=== PATIENT | male | born 1975 | race African-American/Black ===

== ENCOUNTER 2021-05-09 15:38 | Emergency (ER) | payer MEDICAID ==
[~2021-05-09] VITALS: Ht 175.3 cm; Wt 104.3 kg
[2021-05-09 15:42] VITALS: BP 181/97
--- NOTE | 2021-05-09 15:55 | NUR ---
LITTLE BE AT BEDSIDE EXAMINING PT
--- NOTE | 2021-05-09 15:55 | NUR ---
45 Y/O MALE BIB SELF WITH C/O BUG BITE TO LEFT WRIST X2 DAYS, STATES HE DID NOT SEE WHAT BIT HIM. REPORTS TAKING EXCEDRIN AND TYLENOL FOR PAIN WITH NO RELIEF, DENIES FEVERS, CHILLS, N/V/D. PT STATES 10/ PAIN. SKIN WARM TO TOUCH, TENDER AT SITE. SWELLING AND REDNESS TO LT HAND. NUMBNESS TO FINGERS UPON PALPATION. MEDHX: DENIES ALLERGIES: NKA
[2021-05-09] MEDS ORDERED: NAPR-54 PO (15:58)
[2021-05-09] MEDS ORDERED: SULF-59 PO (15:58)
[2021-05-09] MEDS ORDERED: CEPH-588 PO (15:58)
[2021-05-09] MEDS: KETOROLAC 30 MG/ML VIAL IM ONE (16:04)
[2021-05-09 16:11] VITALS: BP 181/97
--- NOTE | 2021-05-09 16:11 | NUR ---
Patient discharged with v/s stable. Written and verbal after care instructions given and explained. Patient alert, oriented and verbalized understanding of instructions. Ambulatory with steady gait. All questions addressed prior to discharge. ID band removed. Patient advised to follow up with PMD. Rx of BACTRIM, KEFLEX, AND NAPROSYN given. Patient educated on indication of medication including possible reaction and side effects. Opportunity to ask questions provided and answered.
== END 2021-05-09 16:11 | disposition home or self-care (01) ==
LOC: MED 15:38
DX: S50.862A Insect bite (nonvenomous) of left forearm, initial encounter (principal); L03.114 Cellulitis of left upper limb; W57.XXXA Bitten or stung by nonvenomous insect and other nonvenomous arthropods, initial encounter; Y93.89 Activity, other specified; Y92.89 Other specified places as the place of occurrence of the external cause; Y99.8 Other external cause status
CPT/HCPCS: 96372; 99283; J1885

== ENCOUNTER 2021-07-01 08:47 | Emergency (ER) | payer OTHER, MEDICAID ==
[~2021-07-01] VITALS: Ht 175.3 cm; Wt 104.8 kg
[~2021-07-01 08:47] MED LIST: CEPH-588 PO; NAPR-54 PO; SULF-59 PO
[2021-07-01 08:49] VITALS: BP 152/92
--- NOTE | 2021-07-01 08:50 | NUR ---
PT AMBULATED TO BED 3
--- NOTE | 2021-07-01 08:55 | NUR ---
46 Y/O MALE BIB SELF DUE TO OVERALL BODY PAIN S/P TC THAT OCCURED 06/27/21. PT STATED PAIN IS 10/10 AND THE PAIN IS CONSTANT. PT HAS BEEN TAKING ASPIRIN AT HOME WITH NO PAIN RELIEF. PT STATES BACK AND NECK PAIN IS WORSE WHEN HE IS LYING IN BED. PT IS ALERT AND ORIENTED X4. BED IN LOWEST POSITION. BED RAIL X1. PMH: DENIES NKA
--- NOTE | 2021-07-01 09:10 | NUR ---
AT PT BEDSIDE
--- NOTE | 2021-07-01 09:35 | NUR ---
PT TAKEN TO CT VIA ANA
[2021-07-01] MEDS ORDERED: KETOROLAC 60 MG/2 ML VIAL IM ONE (10:35)
[2021-07-01] MEDS ORDERED: NAPR-1704 PO (10:36)
[2021-07-01] MEDS ORDERED: ACET-8386 PO (10:36)
[2021-07-01 10:56] VITALS: BP 139/84
--- NOTE | 2021-07-01 10:59 | NUR ---
Patient discharged with v/s stable. Written and verbal after care instructions given and explained. Patient alert, oriented and verbalized understanding of instructions. Ambulatory with steady gait. All questions addressed prior to discharge. ID band removed. Patient advised to follow up with PMD. Rx of HYDROCODONE, ACETAMINOPHEN, NAPROSYN given. Patient educated on indication of medication including possible reaction and side effects. Opportunity to ask questions provided and answered.
== END 2021-07-01 10:56 | disposition home or self-care (01) ==
LOC: MED 08:47
DX: S16.1XXA Strain of muscle, fascia and tendon at neck level, initial encounter (principal); S39.012A Strain of muscle, fascia and tendon of lower back, initial encounter; S29.012A Strain of muscle and tendon of back wall of thorax, initial encounter; S20.219A Contusion of unspecified front wall of thorax, initial encounter; S00.81XA Abrasion of other part of head, initial encounter; S80.811A Abrasion, right lower leg, initial encounter; S09.90XA Unspecified injury of head, initial encounter; F17.210 Nicotine dependence, cigarettes, uncomplicated; Z71.6 Tobacco abuse counseling; Z79.899 Other long term (current) drug therapy; V89.2XXA Person injured in unspecified motor-vehicle accident, traffic, initial encounter; Y93.89 Activity, other specified; Y92.89 Other specified places as the place of occurrence of the external cause; Y99.8 Other external cause status
CPT/HCPCS: 70450; 71045; 72125; 72128; 72131; 96372; 99285; J1885; Q0092

== ENCOUNTER 2022-03-21 14:05 | Inpatient (IN) | payer MEDICAID ==
[~2022-03-21] VITALS: Ht 172.7 cm; Wt 82.6 kg
[~2022-03-21 14:05] MED LIST changes: +ACET-8905 PO; +NAPR-1704 PO
[2022-03-21 14:16] VITALS: BP 176/107
--- NOTE | 2022-03-21 14:54 | NUR ---
Dr. Duran bedside.
[2022-03-21] MEDS ORDERED: KETOROLAC 60 MG/2 ML VIAL IM ONE (15:00)
--- NOTE | 2022-03-21 15:14 | NUR ---
Kavya dropped off with lab.
[2022-03-21 15:42] LABS: BASOPHILS # (AUTO) 0.1 K/uL (0.00-0.22); EOSINOPHILS # (AUTO) 0.1 K/uL (0-0.4); EOSINOPHILS % (AUTO) 1.3 % (0.0-4.0); HEMATOCRIT 43.8 % (36-52); HEMOGLOBIN 14.6 g/dL (12.0-18.0); LYMPHOCYTES # (AUTO) 2.6 K/uL (2.0-11.5); LYMPHOCYTES % (AUTO) 37.6 % (20.5-51.1); MEAN CORPUSCULAR HEMOGLOBIN 29 pg (27-31); MEAN CORPUSCULAR HGB CONC 33 g/dL (33-37); MEAN CORPUSCULAR VOLUME 87.8 fL (80-94); MONOCYTES # (AUTO) 0.8 K/uL (0.8-1.0); MONOCYTES % (AUTO) 11.1 % (1.7-9.3); NEUTROPHILS # (AUTO) 3.4 K/uL (1.8-7.7); PLATELET COUNT (AUTO) 200 K/uL (140-450); RED BLOOD CELL COUNT(AUTO) 4.99 MIL/uL (4.20-6.10); RED CELL DISTRIBUTION WIDTH 14.9 % (11.6-13.7); WHITE BLOOD COUNT (AUTO) 6.9 K/uL (4.8-10.8)
[2022-03-21 16:06] LABS: ALBUMIN 3.8 g/dL (3.4-5.0); ASPARTATE AMINOTRANSFERASE 29 U/L (15-37); CARBON DIOXIDE 30.3 mmol/L (21-32); CHLORIDE 105 mmol/L (98-107); CREATININE 0.7 mg/dL (0.6-1.3); GFR ARICAN-AMERICAN 158 mL/min (>90); GLUCOSE 88 mg/dL (74-106); POTASSIUM 3.3 mmol/L (3.5-5.1); SODIUM SERUM 141 mmol/L (136-145); TOTAL BILIRUBIN 0.2 mg/dL (0.0-1.0); UREA NITROGEN, BLOOD 12 mg/dL (7-18)
--- NOTE | 2022-03-21 16:15 | NUR ---
Attempted to obtain urine from pt. Pt still stating he is unable to provide sample. Water provided.
[2022-03-21] MEDS ORDERED: LORazepam 2 MG/ML VIAL IVP PRN (17:35)
[2022-03-21] MEDS ORDERED: POTASSIUM CHLORIDE 10 MEQ TABER PO PRN (17:35)
[2022-03-21] MEDS ORDERED: ZOLPIDEM 10 MG TAB PO PRN (17:35)
[2022-03-21] MEDS ORDERED: ONDANSETRON 4 MG/2 ML VIAL IVP PRN (17:35)
[2022-03-21] MEDS ORDERED: ACETAMINOPHEN 325 MG TAB PO PRN (17:35)
[2022-03-21] MEDS ORDERED: MAG SULF 2000 MG/WATER PREMIX 50 ML IV PRN (17:35)
[2022-03-21] MEDS ORDERED: DOCUSATE SODIUM 100 MG GELCAP PO PRN (17:35)
--- NOTE | 2022-03-21 18:00 | NUR ---
Med recon completed by Dr. Ghotar.
--- NOTE | 2022-03-21 18:22 | NUR ---
Bedside report given to receiving RN. MARGIE. Pt has all belongings.
--- NOTE | 2022-03-21 18:28 | NUR ---
RECEIVED PATIENT FROM ED VIA [employer] A/O X4. VSS. AFEBRILE. RESPIRATIONS EVEN AND UNLABORED. NO SOB NOTED. O2 SAT ON ROOM 97%. PATIENT DENIES PAIN AT THIS TIME. NO ACUTE DISTRESS NOTED. ORIENTED TO ROOM AND CALL LIGHT SYSTEM. WILL ENDORSE TO NIGHT NURSE. Agapito BURNS RN.
[2022-03-21 18:31] VITALS: BP 146/89
--- NOTE | 2022-03-21 19:30 | NUR ---
RECEIVED PT FROM AM NURSE FOR CONTINUITY OF CARE. P1 IS STABLE
[2022-03-22] VITALS: BP 126/83
[2022-03-22] MEDS: MORPHINE SULFATE 2 MG/ML SYR IVP PRN ×2 (00:01→20:06)
--- NOTE | 2022-03-22 01:00 | NUR ---
PATIENT SLEEPIMG COMFORTABLY, NO DISTRESS NOTED
[2022-03-22 04:00] VITALS: BP 140/69
[2022-03-22 05:28] LABS: BASOPHILS % (AUTO) 0.3 % (0.0-2.0); EOSINOPHILS # (AUTO) 0.2 K/uL (0-0.4); EOSINOPHILS % (AUTO) 2.8 % (0.0-4.0); HEMATOCRIT 45.2 % (36-52); HEMOGLOBIN 14.7 g/dL (12.0-18.0); LYMPHOCYTES # (AUTO) 2.9 K/uL (2.0-11.5); LYMPHOCYTES % (AUTO) 39.9 % (20.5-51.1); MEAN CORPUSCULAR HEMOGLOBIN 29 pg (27-31); MEAN CORPUSCULAR HGB CONC 33 g/dL (33-37); MEAN CORPUSCULAR VOLUME 87.8 fL (80-94); MONOCYTES # (AUTO) 0.7 K/uL (0.8-1.0); MONOCYTES % (AUTO) 10.1 % (1.7-9.3); NEUTROPHILS # (AUTO) 3.4 K/uL (1.8-7.7); NEUTROPHILS % (AUTO) 46.9 % (42.2-75.2); PLATELET COUNT (AUTO) 212 K/uL (140-450); RED BLOOD CELL COUNT(AUTO) 5.14 MIL/uL (4.20-6.10); RED CELL DISTRIBUTION WIDTH 14.9 % (11.6-13.7); WHITE BLOOD COUNT (AUTO) 7.3 K/uL (4.8-10.8)
[2022-03-22 06:03] LABS: ANION GAP 10.5 (8-16); CARBON DIOXIDE 29.4 mmol/L (21-32); CREATININE 0.8 mg/dL (0.6-1.3); POTASSIUM 3.9 mmol/L (3.5-5.1)
--- NOTE | 2022-03-22 14:11 | NUR ---
patient transported to [facility] for MRI.stable at this time
--- NOTE | 2022-03-22 14:30 | NUR ---
PATIENT HAS BEEN SCREENED AND CATEGORIZED LOW NUTRITION RISK. PATIENT WILL BE SEEN WITHIN 7 DAYS OF ADMISSION. 03/28/[address]
--- NOTE | 2022-03-22 15:04 | NUR ---
DC PLANNING SW MET WITH PT AT BEDSIDE TO COMPLETE ASSESSMENT. PT ALERT AND ORIENTED AND ABLE TO PROVIDE ALL OF HIS OWN INFORMATION. PT REPORTS RESIDING IN A SINGLE STORY HOME, ALONE, AT THE ADDRESS LISTED ON FILE. PT DECLINED TO ADD EMERGENCY CONTACT. PT REPORTS LAST VISIT WITH PCP ON 03/20/22. PT REPORTS MEETING WITH PCP REGULARLY. PT IS REPORTED TO BE MEDICATION COMPLIANT AND REPORTS RECEIVING MEDICATION FROM [facility] ON [address] IN [place], WHEN NEEDED. PT REPORTS BEING INDEPENDENT IN ALL ACTIVITIES AND DENIES USE OF DME. PT DENIES HX OF DIALYSIS, DIABETES, SNF PLACEMENT, AND SERVICES. PT REPORTS " SUFFICIENT" FRIEND AND FAMILY SUPPORT.PT REPORTS DC PLAN IS TO RETURN HOME AND WILL PROVIDE HIS OWN TRANSPORTATION, HE DROVE HIMSELF TO [facility], WHEN MEDICALLY STABLE. SW INQUIRED ON RESOURCES NEEDED, PT DECLINED. Addendum: 03/22/22 at 1506 by Sarah Bocanegra SS Amended: Links added.
[2022-03-22 17:00] VITALS: BP 150/94
--- NOTE | 2022-03-22 17:00 | NUR ---
patient came back from [facility]. stable. no complaints at this time.
--- NOTE | 2022-03-22 19:35 | NUR ---
PATIENT IN BED WELL RESTED. ON ROOM AIR. NO DISTRESS NOTED. NO COMPLAINTS OF PAIN AT THIS TIME. IV ACCESS ON THE RAC 20 GAUGE SALINE LOCK. SAFETY MEASURES IN PLACE. CALL LIGHT IN REACH.
[2022-03-22 20:00] VITALS: BP 153/97
--- NOTE | 2022-03-22 20:06 | NUR ---
PATIENT COMPLAINED OF BACK PAIN, MEDICATED WITH MORPHINE IVP.
[2022-03-23 04:00] VITALS: BP 157/85
[2022-03-23 05:35] LABS: BASOPHILS % (AUTO) 0.5 % (0.0-2.0); EOSINOPHILS # (AUTO) 0.1 K/uL (0-0.4); EOSINOPHILS % (AUTO) 1.5 % (0.0-4.0); HEMATOCRIT 45.4 % (36-52); HEMOGLOBIN 15.2 g/dL (12.0-18.0); LYMPHOCYTES # (AUTO) 2.3 K/uL (2.0-11.5); LYMPHOCYTES % (AUTO) 28.8 % (20.5-51.1); MEAN CORPUSCULAR HEMOGLOBIN 29 pg (27-31); MEAN CORPUSCULAR HGB CONC 33 g/dL (33-37); MEAN CORPUSCULAR VOLUME 87.4 fL (80-94); MONOCYTES # (AUTO) 0.9 K/uL (0.8-1.0); MONOCYTES % (AUTO) 10.6 % (1.7-9.3); NEUTROPHILS # (AUTO) 4.8 K/uL (1.8-7.7); NEUTROPHILS % (AUTO) 58.6 % (42.2-75.2); PLATELET COUNT (AUTO) 198 K/uL (140-450); RED CELL DISTRIBUTION WIDTH 14.7 % (11.6-13.7); WHITE BLOOD COUNT (AUTO) 8.1 K/uL (4.8-10.8)
[2022-03-23 06:06] LABS: ANION GAP 12.1 (8-16); CARBON DIOXIDE 27.5 mmol/L (21-32); CREATININE 0.8 mg/dL (0.6-1.3); POTASSIUM 3.6 mmol/L (3.5-5.1)
--- NOTE | 2022-03-23 07:18 | NUR ---
BEDSIDE REPORT GIVEN TO AM NURSE MERRICK FOR CONTINUITY OF CARE. PATIENT STABLE.
[2022-03-23 08:00] VITALS: BP 154/103
--- NOTE | 2022-03-23 08:09 | NUR ---
RECEIVED PT FROM FRANCHISE FIELD CONSULTANT NURSE FOR CONTINUITY OF CARE.
--- NOTE | 2022-03-23 08:30 | NUR ---
REVIEWED AND DISCUSSED PT PLAN OF CARE WITH LARS SIN. PT IN STABLE CONDITION.
[2022-03-23] MEDS: hydroCHLOROthiazide 25 MG TAB PO SCH (09:02)
--- NOTE | 2022-03-23 09:08 | NUR ---
ADMINISTERED SCHEDULED MED. PT TOLERATING WELL.
--- NOTE | 2022-03-23 11:22 | NUR ---
PT NOTED WITH HIGH BP THIS MORNING. CHECKED BP AGAIN TO EVALUATE IF SCHEDULED BP MED WORKING. PT NOTED WITH BP OF 166/79. INFORMED DR AYALA. AWAITING RESPONSE.
[2022-03-23] MEDS: hydrALAZINE 20 MG/ML VIAL IVP PRN ×3 (11:40→13:12)
--- NOTE | 2022-03-23 11:45 | NUR ---
ADMINISTERED PRN HYDRALAZINE FOR RENT CONTROL OFFICE MANAGER MERRICK FOR BP 177/87 AND HR 78.
--- NOTE | 2022-03-23 13:06 | NUR ---
INFORMED DR AYALA THAT PT RECEIVED HYDRALAZINE AT 1140. REASSESSED BP AND IT IS STILL HIGH 169/95. AWAITING FOR NEW ORDERS.
[2022-03-23] MEDS ORDERED: CLONIDINE HYDROCHLORIDE 0.1 MG TAB PO PRN (13:10)
[2022-03-23] MEDS: MORPHINE SULFATE 2 MG/ML SYR IVP PRN (14:10)
--- NOTE | 2022-03-23 14:10 | NUR ---
ADMINISTERED PRN MORPHINE FOR LOWER BACK PAIN 10/05 FOR LARS SIN.
--- NOTE | 2022-03-23 15:16 | NUR ---
REASSESSED BP AFTER CATAPRES GIVEN BP NOW 137/94.
[2022-03-23 16:00] VITALS: BP 122/85
--- NOTE | 2022-03-23 18:35 | NUR ---
MAKING ROUNDS PT EATING DINNER. CALL LIGHT WITHIN REACH.
--- NOTE | 2022-03-23 19:15 | NUR ---
ENDORSED PT TO RING ROLLING MACHINE OPERATOR NURSE FOR CONTINUITY OF CARE. PT IN STABLE CONDITION.
--- NOTE | 2022-03-23 19:30 | NUR ---
RECEIVED REPORT FROM DAY SHIFT NURSE MERRICK FOR CONTINUITY OF CARE. PATIENT IS A&O X4. PATIENT IS ON ROOM AIR, BREATHING IS NORMAL WITH SYMMETRICAL RISE AND FALL OF CHEST. IV IS A RAC 20G; NO FLUIDS RUNNING AT THIS TIME (SALINE LOCKED). PATIENT IS A SLEEP, LYING SUPINE POSITION. WILL CONTINUE TO OBSERVE PATIENT.
[2022-03-23 20:00] VITALS: BP 148/85
--- NOTE | 2022-03-23 22:00 | NUR ---
PATIENT WOKE UP AND REQUESTED SOMETHING TO EAT. PATIENT IS ON A REGULAR DIET, AND WAS GIVEN A TURKEY SANDWICH AND A PUDDING CUP. PATIENT ATE BOTH AND WENT BACK TO SLEEP. BREATHING IS NORMAL WITH SYMMETRICAL RISE AND FALL OF CHEST. WILL CONTINUE TO OBSERVE PATIENT.
[2022-03-24] MEDS: MORPHINE SULFATE 2 MG/ML SYR IVP PRN ×3 (02:35→12:42)
[2022-03-24 05:34] LABS: BASOPHILS % (AUTO) 0.4 % (0.0-2.0); EOSINOPHILS # (AUTO) 0.1 K/uL (0-0.4); EOSINOPHILS % (AUTO) 1.9 % (0.0-4.0); HEMATOCRIT 44.4 % (36-52); LYMPHOCYTES # (AUTO) 2.4 K/uL (2.0-11.5); LYMPHOCYTES % (AUTO) 31.1 % (20.5-51.1); MEAN CORPUSCULAR HEMOGLOBIN 29 pg (27-31); MEAN CORPUSCULAR HGB CONC 34 g/dL (33-37); MEAN CORPUSCULAR VOLUME 86.9 fL (80-94); MONOCYTES # (AUTO) 0.9 K/uL (0.8-1.0); MONOCYTES % (AUTO) 11.6 % (1.7-9.3); NEUTROPHILS # (AUTO) 4.2 K/uL (1.8-7.7); PLATELET COUNT (AUTO) 204 K/uL (140-450); RED BLOOD CELL COUNT(AUTO) 5.11 MIL/uL (4.20-6.10); RED CELL DISTRIBUTION WIDTH 15.2 % (11.6-13.7); WHITE BLOOD COUNT (AUTO) 7.6 K/uL (4.8-10.8)
[2022-03-24 05:57] LABS: ANION GAP 12.5 (8-16); CARBON DIOXIDE 28.2 mmol/L (21-32); CREATININE 0.9 mg/dL (0.6-1.3); POTASSIUM 3.7 mmol/L (3.5-5.1)
--- NOTE | 2022-03-24 06:31 | NUR ---
PATIENT SLEPT THROUGHOUT THE NIGHT. WOKE UP AROUND 0200 AND REQUESTED MORPHINE FOR PAIN. BP WAS WITHIN NORMAL LIMITS AND MORPHINE WAS APPROPRIATE TO ADMINISTER. PATIENT TOLERATED WELL AND WENT BACK TO SLEEP. WILL ENDORSE CARE TO DAY SHIFT NURSE.
--- NOTE | 2022-03-24 07:30 | NUR ---
RECEIVED REPORT FROM COMPUTER PROGRAMMING PROFESSOR NURSE FOR CONTINUITY OF CARE, PT AMBULATING FROM RESTROOM IN STABLE CONDITION, ABLE TO MAKE NEEDS KNOWN. UNDER THE CARE OF RN CAREN WITH PRECEPTOR. ALL SAFETY MEASURES IN PLACE, CALL LIGHT WITHIN REACH. WILL CONTINUE TO MONITOR.
--- NOTE | 2022-03-24 07:30 | NUR ---
RECEIVED PATIENT FROM SHEEP FARM WORKER NURSE.PATIENT IS AMBULATORY,WAS AT BATHROOM WHEN GETTING SHIFT REPORT..VITALS ARE STABLE.POC DISCUSSED.CALL LIGHT WITHIN REACH.WILL CONTINUE TO MONITOR FOR FURTHER CARE.
--- NOTE | 2022-03-24 07:42 | NUR ---
ENDORSED TO DAY SHIFT NURSE LIZ FOR CONTINUITY OF CARE. PATIENT IS STABLE.
[2022-03-24 08:00] VITALS: BP 150/92
[2022-03-24] MEDS: hydroCHLOROthiazide 25 MG TAB PO SCH (08:19)
[2022-03-24] MEDS: GABAPENTIN 300 MG CAP PO SCH ×2 (09:03→12:42)
--- NOTE | 2022-03-24 10:00 | NUR ---
PATIENT VERBALISED PAIN.RATING 6 PER ADULT RATING SCALE.DR HOLMAN IS AT BEDSIDE.PAIN MED GIVEN PER ORDER.VITALS ARE STABLE.WILL CONTINUE TO MONITOR.
[2022-03-24] MEDS ORDERED: ACET-8905 PO (10:03)
[2022-03-24] MEDS ORDERED: NAPR-54 PO (10:03)
[2022-03-24] MEDS ORDERED: GABA300C PO (10:03)
--- NOTE | 2022-03-24 15:00 | NUR ---
PATIENT IS DISCHARGED PER ORDER.FULL DISCHARGE INSTRUCTIONS GIVEN IN DISCHARGE PACKET.DISCHARGE TEACHING REINFORCED ABOUT PROPER FOLLOW UP,PAIN MANAGEMENT ,EMERGENCY MANAGEMENT.ID BANDS ,IV CANNULA REMOVED. VERBALISED TEACHING RESPONSE.VITALS ARE STABLE.WALKED HIM TO THE CAR NEAR ER.
== END 2022-03-24 15:18 | disposition home or self-care (01) | DRG 48 ==
LOC: MED 14:05 → MMU 17:32 → MTU 17:56
PROVIDERS: ADMIT Family Medicine; ATTEND Family Medicine
DX: M54.12 Radiculopathy, cervical region (principal); E83.51 Hypocalcemia; M54.17 Radiculopathy, lumbosacral region; M54.50 Low back pain, unspecified; E87.6 Hypokalemia; R51.9 Headache, unspecified; G62.9 Polyneuropathy, unspecified; R32 Unspecified urinary incontinence; I10 Essential (primary) hypertension; Z20.822 Contact with and (suspected) exposure to COVID-19
CPT/HCPCS: 36415; 71045; 80048; 80053; 83735; 84484; 85025; 87081; 96372; 99285; J0360; J1885; J2270